=== PATIENT | male | born 1960 | race Caucasian/White ===

== ENCOUNTER 2021-06-28 12:46 | Outpatient (CLI) | payer SELFPAY | END 2021-06-28 12:47 | disposition home or self-care (01) | LOC: MADRAD 12:46 | PROVIDERS: ATTEND Physician Assistant | DX: Z23 Encounter for immunization (principal); N20.0 Calculus of kidney | CPT/HCPCS: 74018 ==

== ENCOUNTER 2021-08-06 12:58 | Outpatient (CLI) | payer SELFPAY | END 2021-08-06 12:59 | disposition home or self-care (01) | LOC: MADRAD 12:58 | PROVIDERS: ATTEND Registered Nurse | DX: R10.9 Unspecified abdominal pain (principal); N20.0 Calculus of kidney | CPT/HCPCS: 74018 ==

== ENCOUNTER 2022-05-22 16:37 | Emergency (ER) | payer OTHER, SELFPAY | END 2022-05-22 19:19 | disposition home or self-care (01) | LOC: MADERS 16:37 | DX: T78.2XXA Anaphylactic shock, unspecified, initial encounter (principal); R60.0 Localized edema; I10 Essential (primary) hypertension; E78.00 Pure hypercholesterolemia, unspecified; Z87.442 Personal history of urinary calculi; Z79.899 Other long term (current) drug therapy | CPT/HCPCS: 94760 ==